=== PATIENT | female | born 1995 | race Caucasian/White ===

== ENCOUNTER 2019-02-11 23:06 | Emergency (ER) | payer OTHER ==
[2019-02-11 23:07] VITALS: BP 140/94
--- NOTE | 2019-02-11 23:17 | ER Report ---
History and Physical Time Seen By MD: 23:13 HPI/ROS CHIEF COMPLAINT: Suicidal ideation HISTORY OF PRESENT ILLNESS: This is a 23 year old female. Brought to the ER tonight by [facility] for suicidal ideation, under emergency mcc. Patient has active thought of suicide with current plan to slit wrists. Cutting extensively today with past history of the same. Denies other self harm behaviors today. Has had counseling in the past, but no current counseling or medications. Increased stressors seem to be focused on relations hip problems at this time. She is cooperative and does admit that she needs some help. Denies any other medical problems and takes no other medications. Allergies: Coded Allergies: No Known Drug Allergies (Unverified , 02/11/19) Home Meds No Active Prescriptions or Reported Meds Reviewed Nurses Notes: Yes Constitutional Vital Sign - Last 24 Hours 02/11/19 23:07 Temp 99.0 Pulse 97 Resp 16 B/P (MAP) 140/94 Pulse Ox 93 O2 Delivery Room Air Physical Exam General Appearance: The patient is alert, has no immediate need for airway protection and no current signs of toxicity. Eyes: Pupils equal and round no injection. ENT: Normal oral mucosa. Moist mucous membranes. Neck: Neck is supple and non tender. Respiratory: Chest is non tender, lungs are clear to auscultation. Cardiac: regular rate and rhythm, normal peripheral perfusion. Gastrointestinal: Abdomen is soft and non tender, bowel sounds normal. Musculoskeletal: Extremities have full range of motion. No tenderness. Skin: No rashes. She has cutting extensively on all extremities, shallow non- needing laceration repair. Neuro: Alert and oriented 3. No focal deficits noted. DIFFERENTIAL DIAGNOSIS: After history and physical exam differential diagnosis was considered for patient with suicidal ideation and current plan under emergency mcc Medical Decision Making Data Points Result Diagram: 02/11/199 02/11/199 Laboratory Hematology Test 02/11/19 23:29 White Blood Count 7.7 k/uL (4.5-11.0) Red Blood Count 4.73 M/uL (4.17-5.56) Hemoglobin 14.8 g/dL (12.0-16.0) Hematocrit 42.2 % (34.0-47.0) Mean Corpuscular Volume 89.2 fL (80.0-96.0) Mean Corpuscular Hemoglobin 31.3 pg (26.0-33.0) Mean Corpuscular Hemoglobin Concent 35.0 g/dL (32.0-36.0) Red Cell Distribution Width 12.7 % (11.5-14.5) Platelet Count 233 K/uL (150-450) Mean Platelet Volume 9.5 fL (7.2-11.1) Neutrophils (%) (Auto) 54.9 % (39.4-72.5) Lymphocytes (%) (Auto) 35.7 % (17.6-49.6) Monocytes (%) (Auto) 6.6 % (4.1-12.4) Eosinophils (%) (Auto) 2.3 % (0.4-6.7) Basophils (%) (Auto) 0.5 % (0.3-1.4) Nucleated RBC Relative Count (auto) 0.0 /100WBC Neutrophils # (Auto) 4.2 K/uL (2.0-7.4) Lymphocytes # (Auto) 2.7 K/uL (1.3-3.6) Monocytes # (Auto) 0.5 K/uL (0.3-1.0) Eosinophils # (Auto) 0.2 K/uL (0.0-0.5) Basophils # (Auto) 0.0 K/uL (0.0-0.1) Nucleated RBC Absolute Count (auto) 0.00 K/uL Chemistry Test 02/11/19 23:29 Sodium Level 139 mmol/L (137-145) Potassium Level 3.0 mmol/L (3.5-5.0) Chloride Level 106 mmol/L (98-107) Carbon Dioxide Level 19 mmol/L (22-31) Blood Urea Nitrogen 13 mg/dl (7-18) Creatinine 0.60 mg/dl (0.52-1.04) Glomerular Filtration Rate Calc > 60.0 Random Glucose 99 mg/dl (75-110) Calcium Level 9.2 mg/dl (8.4-10.2) Magnesium Level 2.0 mg/dl (1.7-2.2) Total Bilirubin 1.1 mg/dl (0.2-1.3) Aspartate Amino Transf (AST/SGOT) 27 U/L (0-35) Alanine Aminotransferase (ALT/SGPT) 28 U/L (0-56) Alkaline Phosphatase 58 U/L (0-126) Total Protein 7.9 g/dl (6.3-8.2) Albumin 4.5 g/dl (3.5-5.0) Toxicology Test 02/11/19 23:08 02/11/19 23:29 Urine Opiates Screen Negative Urine Barbiturates Screen Negative Ur Tricyclic Antidepressants Screen Negative Urine Phencyclidine Screen Negative Urine Amphetamines Screen Negative Urine Benzodiazepines Screen Negative Urine Cocaine Screen Negative Urine Cannabinoids Screen Positive Salicylates Level < 10 mg/L Salicylate Last Dose Date unk Acetaminophen Level < 10 ug/ml Serum Alcohol 28 mg/dl Urinalysis Test 02/11/19 23:08 Urine Color Straw Urine Clarity Clear Urine pH 6.0 pH (4.8-9.5) Urine Specific [place] 1.008 Urine Protein Negative mg/dL (NEGATIVE) Urine Glucose (UA) Negative mg/dL (NEGATIVE) Urine Ketones Negative mg/dL (NEGATIVE) Urine Blood Negative (NEGATIVE) Urine Nitrite Negative (NEGATIVE) Urine Bilirubin Negative (NEGATIVE) Urine Urobilinogen Negative mg/dL (0.2-1.9) Urine Leukocyte Esterase Negative (NEGATIVE) Urine RBC <1 /HPF (0-2/HPF) Urine WBC 1 /HPF (0-5/HPF) Urine Squamous Epithelial Cells Many /LPF (</=FEW) Urine Transitional Epithelial Cells Few /LPF (NONE-FEW) Urine Bacteria Negative /HPF (NONE-FEW) Urine Mucus None /HPF (NONE-FEW) Urine HCG, Qualitative Negative (NEGATIVE) ED Course/Re-evaluation ED Course Labs obtained. Discussed everything with the patient. She understands emergency mcc procedure. She is cooperative with this process. His case with Christina Cueva, who accepted the patient for admission to [facility]. Emergency mcc as upheld. Decision to Disposition Date: Feb 12, 2019 Decision to Disposition Time: 00:16 Depart Departure Latest Vital Signs Vital Signs Date Time Temp Pulse Resp B/P (MAP) Pulse Ox O2 Delivery O2 Flow Rate FiO2 02/11/19 23:07 99.0 97 16 140/94 93 Room Air Impression: Primary Impression: Suicidal ideation Additional Impression: Suicide and self-inflicted injury by cutting and piercing instrument Condition: Condition Unchanged Disposition: XFER TO [facility] New Scripts No Active Prescriptions or Reported Meds Problem Qualifiers Additional Impression: Suicide and self-inflicted injury by cutting and piercing instrument Encounter type: initial encounter Qualified Codes: X78.9XXA - Intentional self-harm by unspecified sharp object, initial encounter NYDIA APARICIO MD Feb 11, 2019 23:17
[2019-02-12 00:02] LABS: PLATELET COUNT, AUTOMATED 233 K/uL (150-450)
--- NOTE | 2019-02-12 00:21 | BHS - Psychiatric Evaluation ---
ER - Title 25 MHE Evaluation Title 25 Evaluation Patient Detained By: Law Enforcement Referral Source: Law enforcement Date Patient Detained: Feb 11, 2019 Time Patient Detained: 23:25 Date Fpc Expires: Feb 14, 2019 Time Fpc Expires: 23:59 Legal Status: Police Hold: No Legal Status: Residence: [facility] Resident Assessment Data Provided By: Patient, Law Enforcement HPI/ROS: This is a 23 year old female. Brought to the ER tonight by [place] [employer] for suicidal ideation, under emergency [facility]. Patient has active thought of suicide with current plan to slit wrists. Cutting extensively today with past history of the same. Denies other self harm behaviors today. Has had counseling in the past, but no current counseling or medications. Increased stressors seem to be focused on relationship problems at this time. She is cooperative and does admit that she needs some help. Denies any other medical problems and takes no other medications. Admit due to SI or Attempt: Yes Suicide Plan: Has Plan with Access Alcohol or Drugs Involved: Yes Current Intoxication Info: Positive for cannabinoids and mild elevation of alcohol level. Is Patient Info Reliable: Yes Is Collateral Info Reliable: Yes Mental Status Exam General Appearance: Good Eye Contact, Cooperative, Polite, Good Interaction (other than constant use of phone and texting) Speech: Clear, Spontaneous, Normal Rate, Normal Rhythm, Normal Volume, Normal Tone Mood: Dysthmic/Depressed Affect: Calm, Sad Thought Process: Organized, Logical Thought Content: Suicidal Ideation; No Homicidal Ideation Sensorium: Clear Cognition: Alert & Oriented-Person, Alert & Oriented-Place, Alert & Oriented- Time, [place]-Vsgmanpjl Memory: Immediate, Recent, Remote Insight Judgment: Intact, Appropriate Hallucinations: Denies Delusions: Denies Current Risk & History Current Dangerous Risk Assessm: Current Suicide Ideation Past Dangerous Risk Assessm: Suicide Ideation-last 6mo Previous Suicide Attempt: Past - Low Lethality Previous Psychiatric Illness: Yes Previous Psychiatric Treatment: Yes Risk Assessment & Disposition Evaluated Risk Assessment: Patient with active current suicidal ideation as noted, as well as cutting behaviors. Impression: Primary Impression: Suicidal ideation Additional Impression: Suicide and self-inflicted injury by cutting and piercing instrument Meets Mental Illness Req.: Yes Meets Dangerousness Req.: Yes Emergency Fpc to be: Upheld Date of Decision: Feb 12, 2019 Time of Decision: 00:15 Patient is Medically Stable at: Yes Disposition: [facility] Problem Qualifiers Additional Impression: Suicide and self-inflicted injury by cutting and piercing instrument Encounter type: initial encounter Qualified Codes: X78.9XXA - Intentional self-harm by unspecified sharp object, initial encounter NYDIA APARICIO MD Feb 12, 2019 00:21
== END 2019-02-12 00:46 ==
LOC: ER 23:11
DX: R45.851 Suicidal ideations (principal); X78.9XXA Intentional self-harm by unspecified sharp object, initial encounter
CPT/HCPCS: 36415; 80305; 80320; 80329; 81001; 81025; 82040; 82247; 82310; 82374; 82435; 82565; 82947; 83735; 84075; 84132; 84155; 84295; 84443; 84450; 84460; 84520; 85025

== ENCOUNTER 2019-02-12 00:38 | Inpatient (IN) | payer OTHER ==
[~2019-02-12] VITALS: Ht 165.1 cm; Wt 81.6 kg
[2019-02-12 00:50] VITALS: BP 125/94
[2019-02-12] MEDS ORDERED: MAG HYD/AL HYD/SIMETH 30ML UDC PO PRN (00:50)
[2019-02-12] MEDS ORDERED: ACETAMINOPHEN 325 MG TAB PO PRN (00:50)
[2019-02-12] MEDS ORDERED: traZODone HCL 50 MG TAB PO PRN (00:50)
[2019-02-12] MEDS: MULTIVITAMINS TAB PO SCH (08:00)
[2019-02-12 14:17] VITALS: BP 116/82
[2019-02-12] MEDS: traZODone HCL 50 MG TAB PO SCH (21:33)
[2019-02-12 21:48] VITALS: BP 128/80
[2019-02-13 05:58] VITALS: BP 104/75
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
[2019-02-13] MEDS: MULTIVITAMINS TAB PO SCH (08:23)
[2019-02-13] MEDS: lamoTRIgine 25 MG TAB PO SCH (11:06)
--- NOTE | 2019-02-13 11:15 | BHS Progress Note ---
[facility] - Subjective Progress Notes Subjective Patient doing well today, having slept well, and indicates improving mood. After discussion of risks verses benefits, patient agrees to start Lamictal to help with mood stability and anxiety. Patient's father has benefited from lamictal. Patient agrees to enter into DBT as an outpatient and stop smoking cannabis. Appetite good, no other concerns. Suicidal Ideation: None Homicidal Ideation: None [facility] - Objective Physical Exam Vital Signs Vital Signs Date Time Temp Pulse Resp B/P (MAP) Pulse Ox O2 Delivery O2 Flow Rate FiO2 02/13/19 05:58 98.8 57 104/75 (85) 96 Room Air Muscle Strength and Tone: WNL Gait and Station: Steady [facility] Medications Reviewed: Side Effects, Benefits of Medication, Risks Allergies Reviewed: Yes Mental Status Exam General Appearance: Casual, Well Groomed, Good Eye Contact, Cooperative, Dany ite, Good Interaction; No Unkept, No Tearful, No Psychomotor Agitation, No Psychomotor Retardation, No Bizarre Mannerisms, No Tics Speech: Clear, Spontaneous, Normal Rate, Normal Rhythm, Normal Volume, Normal Tone Mood: Euthymic (improving) Affect: Full and Appropriate, Calm; No Sad, No Flat, No Withdrawn, No Tearful, No Anxious, No Agitated Thought Process: Organized, Logical, Goal Directed; No Loose Associations, No Flight of Ideas Thought Content: No Suicidal Ideation (resolved), No Homicidal Ideation, No Delusions, No Auditory Halllucinations, No Visual Hallucinations, No Thought Broadcasting, No Ideas of Reference, No Obsessions, No Compulsions Sensorium: Clear Cognition: Alert & Oriented-Person, Alert & Oriented-Place, Alert & Oriented- Time, Kjotn-Bteozhaf-Zxsthhnvi Memory: Immediate, Recent, Remote Intelligence: Average Insight Judgment: Fair (underlying maladaptive stress coping mechanisms exist, ) [facility] Assessment and Plan Faoq-[id number] Encounter Date: Feb 13, 2019 Irwo-zy-Rlvl Encounter Time: 11:00 [facility] Plan: Necessary Precautions, Individual/Group Therapy, Admin/Titrate Meds, Educate Patient Tobacco Medications: Not Appropriate Condition Multpiple Antipsychotics Used: No Problems: (1) Partner relational problem Status: Acute (2) Borderline personality disorder Optional Permanent Comment: mild Last Edited By: Nirmala Barajas on Feb 13, 2019 11:14 Status: Chronic (3) Cannabis use disorder, severe, in controlled environment Status: Chronic (4) Adjustment disorder with mixed anxiety and depressed mood Status: Acute Condition 1. continue treatment. 2. start lamictal 3. plan for discharge tomorrow. NIRMALA BARAJAS MD Feb 13, 2019 11:15
[2019-02-13 13:05] VITALS: BP 126/84
[2019-02-13] MEDS: traZODone HCL 50 MG TAB PO SCH (20:23)
[2019-02-13 20:48] VITALS: BP 118/72
[2019-02-13] MEDS ORDERED: traZODone HCL 50 MG TAB PO ONE (21:50)
[2019-02-14 06:00] VITALS: BP 127/85
[2019-02-14] MEDS: lamoTRIgine 25 MG TAB PO SCH (08:31)
[2019-02-14] MEDS: MULTIVITAMINS TAB PO SCH (08:31)
[2019-02-14] MEDS ORDERED: TRAZ150T8 PO (10:14)
[2019-02-14 10:21] VITALS: BP 121/79
[2019-02-14] MEDS ORDERED: LAMO25TA64 PO (10:38)
[2019-02-14] MEDS ORDERED: MULT-1379 PO (10:38)
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
== END 2019-02-14 15:52 | disposition home or self-care (01) | DRG 882 ==
LOC: BHS 00:38
PROVIDERS: ADMIT Nurse Practitioner Psychiatric/Mental Health; ATTEND Nurse Practitioner Psychiatric/Mental Health
DX: F43.23 Adjustment disorder with mixed anxiety and depressed mood (principal); R45.851 Suicidal ideations; F60.3 Borderline personality disorder; F12.20 Cannabis dependence, uncomplicated; Z91.410 Personal history of adult physical and sexual abuse; Z81.8 Family history of other mental and behavioral disorders; Z63.0 Problems in relationship with spouse or partner